=== PATIENT | female | born 1965 | race Caucasian/White ===

== ENCOUNTER → 2018-07-27 | Outpatient (CLI) | payer OTHER ==
[2018-07-28 09:51] LABS: RUBELLA IgG QUALITATIVE IMMUNE (IMMUNE)
[2018-07-29 09:10] LABS: MUMPS VIRUS IgG ANTIBODY 12.9 AU/mL (Immune >10.9)
== END ==
LOC: M WUC 14:02
PROVIDERS: ATTEND Physician Assistant
DX: Z02.1 Encounter for pre-employment examination (principal)